=== PATIENT | female | born 1990 ===

== ENCOUNTER 2021-09-10 11:27 | Outpatient (CLI) | payer OTHER ==
[2021-09-10 12:12] LABS: Bilirubin,Urine NEG (Negative); Blood,Urine NEG (Negative); Color,Urine Yellow (Yellow); Mucus,Urine 1+ /HPF; Protein,Urine <15 mg/dL mg/dL (Negative); Urobilinogen,Urine < 2.0 mg/dL (<2.0)
[2021-09-10] MEDS ORDERED: LACTATED RINGERS 1,000 ML IV ONE (12:47)
[2021-09-10] MEDS ORDERED: TERBUTALINE 1 MG/1 ML INJ SUB-Q SCH (13:00)
[2021-09-10] MEDS ORDERED: LACTATED RINGERS 500 ML IV ONE (13:53)
[2021-09-10 14:24] VITALS: BP 114/68
[2021-09-10] MEDS ORDERED: LACTATED RINGERS 1,000 ML IV SCH (14:45)
--- NOTE | 2021-09-10 17:06 | Ultrasound Report ---
ULTRASOUND OBSTETRIC LIMITED ULTRASOUND BIOPHYSICAL PROFILE INDICATION / CLINICAL INFORMATION: well-being. PTL. Placenta scan. Clinical Gestational Age (GA): 27.2 weeks.days COMPARISON: None available. FINDINGS: BREATHING MOVEMENT = 2 GROSS BODY MOVEMENT = 2 TONE = 2 QUALITATIVE AMNIOTIC FLUID VOLUME = 2 TOTAL BIOPHYSICAL SCORE = 8/8 HEART RATE (beats per minute): 144 AMNIOTIC FLUID INDEX (cm) = 16.8 (normal = 7-24 cm) PRESENTATION: Cephalic. ADDITIONAL FINDINGS: The placenta is located anteriorly and laterally on the right, is grade 1 and is free of the os. There is no evidence of abruption. IMPRESSION: 1. Biophysical Score = 8/8 2. Normal NICK of 16.8 cm. 3. No evidence of placental abruption or previa. Signer Name: Westley Blue MD Signed: 09/10/2021 5:02 PM Workstation Name: [id number]
== END 2021-09-10 13:25 | disposition home or self-care (01) ==
LOC: TRG 11:27 → APU 11:28 → TRG 13:25
PROVIDERS: ATTEND Obstetrics & Gynecology
DX: O26.892 Other specified pregnancy related conditions, second trimester (principal); R10.9 Unspecified abdominal pain; O99.352 Diseases of the nervous system complicating pregnancy, second trimester; G43.909 Migraine, unspecified, not intractable, without status migrainosus; Z87.891 Personal history of nicotine dependence; Z3A.27 27 weeks gestation of pregnancy
CPT/HCPCS: 36415; 59025; 76815; 76819; 81001; 82731; 96360; 96361; J7120